=== PATIENT | female | born 1960 | race Caucasian/White ===

== ENCOUNTER → 2018-10-29 15:38 | Outpatient (CLI) | payer OTHER, SELFPAY ==
--- NOTE | 2018-10-29 10:32 | COLBX_PTH ---
PATIENT: SHELIA ROCHA LOC: [facility] U#:[id number] AGE/SX: 64/F ROOM: RE10/29/[address]: Dr. Forrest العراقي MD : 1960 BED: DIS: SPEC #: [id number] RECD: 10/29/18 15:21 STATUS: NELSON RERose #: [id number] JEAN CLAUDE: 10/29/18 10:[address]: Forrest العراقي DEPT: SURGICAL PATHOLOGY RECD BY: Alexei Regan ENTERED: 11/01/18 10:20 SP TYPE: COLON BX OTHR DR: Dr. Jay Webber MD [facility] Tissues: Transverse colon Procedures: Surgery Specimen Level IV HEADER OPERATION: Colonoscopy with polypectomy PRE-OP DIAGNOSIS: Screening, history polyps TISSUE SUBMITTED: Transverse colon polyp, rule out adenoma MICROSCOPIC DIAGNOSIS Transverse colon polyp, biopsy: Consistent with inflammatory pseudopolyp. AM:samy 11/02/18 COMMENT Case has been reviewed in consultation with Dr. Herrera who concurs with the above diagnosis. IDC:SJ MICROSCOPIC DESCRIPTION Slides are reviewed. GROSS DESCRIPTION Received in fixative is one container labeled with the patient's name and designated transverse colon polyp. The specimen consists of a piece of nava-pink polyp measuring 0.3 x 0.3 x 0.2 cm. The specimen is totally submitted in one cassette. / JASON:samy 11/01/18 TC:2 CPT: 31229
== END ==
PROVIDERS: Family Provider Family Medicine; PCP Family Medicine; Referring Provider Internal Medicine Gastroenterology; Visit Provider Internal Medicine Gastroenterology
DX: Z12.11 Encounter for screening for malignant neoplasm of colon (principal); K63.5 Polyp of colon
CPT/HCPCS: 88305

== ENCOUNTER → 2019-05-20 15:06 | Outpatient (CLI) | payer OTHER, SELFPAY ==
[2019-05-20 17:24] LABS: Absolute Lymphocyte Count 1.39 X10^3/uL (0.83-4.51); Absolute Neutrophil Count 3.6 X10^3/uL (2.0-7.7); Basophil# 0.04 X10^3/uL; Basophil% 0.7 % (0-1); Eosinophil# 0.25 X10^3/uL; Eosinophils% 4.3 % (0-5); Hematocrit 44.2 % (37-47); Hemoglobin 14.7 g/dL (12.0-15.0); Lymphocyte # 1.39 X10^3/ul (4.0); Lymphocyte % 24.2 % (19-41); Mean Corp Hgb Conc 33.3 g/dL (32-36); Mean Corpuscular Hgb 29.6 pg (27.0-32.0); Mean Corpuscular Volume 88.9 fL (81-99); Mean Platelet Vol. 9.8 fl (6.2-12.0); Monocyte# 0.51 X10^3/uL; Monocyte% 8.9 % (0-10); NRBC Flagged by Analyzer 0 % (0-5); Neutrophil # 3.55 X10^3/uL (2.7-7.7); Neutrophil % 61.7 % (47-70); Platelet Count 304 K/mm3 (150-450); RBC Distribution Width CV 12.8 % (11.6-14.6); RBC Distribution Width SD 41.7 fl (35.1-43.9); Red Blood Count 4.97 M/mm3 (4.2-5.4); White Blood Count 5.8 K/mm3 (4.4-11.0)
[2019-05-20 17:57] LABS: Hemoglobin A1c 6.2 % (4.2-6.3)
[2019-05-20 18:01] LABS: ALB/GLOB Ratio 1.2 RATIO (0.9-2.4); AST(SGOT) 26 U/L (15-37); Alanine Aminotransfer ALT/SGPT 27 U/L (13-56); Alkaline Phosphatase 93 U/L (45-117); Anion Gap 7 (5-15); BUN 12 mg/dL (7-18); BUN/Creat Ratio 18.3 RATIO (10-20); Calcium,Total 8.9 mg/dL (8.5-10.1); Chloride 105 mmol/L (98-107); Cholesterol 133 mg/dL (200); Creatinine, Serum 0.66 mg/dL (0.55-1.02); EST Glomerular Filtration Rate 98 mL/min (>60); Est Glom Filt Rate - Afr Amer 119 mL/min (>60); Globulin 3.4 g/dL (2.2-4.2); Glucose 85 mg/dL (74-106); High Density Lipoprotein 73 mg/dL; Potassium 3.8 mmol/L (3.5-5.1); Protein, Total 7.4 g/dL (6.4-8.2); Sodium Level 139 mmol/L (136-145); T4 Free Direct 1.47 ng/dL (0.76-1.46); Triglycerides 66 mg/dL; Very Low Density Lipoprotein 13 mg/dL (5-40)
[2019-05-20 18:08] LABS: Microalbumin,Random Urine < 5.0 mg/L (NO RANGE EST.)
[2019-05-23 22:11] LABS: Anti-Thyroglobulin AB < 1.0 IU/mL (0.0-0.9); Thyroid Peroxidase AB 112 IU/mL (0-34)
== END ==
PROVIDERS: Family Provider Family Medicine; PCP Family Medicine; Referring Provider Family Medicine; Visit Provider Family Medicine
DX: E03.9 Hypothyroidism, unspecified (principal); E11.9 Type 2 diabetes mellitus without complications
CPT/HCPCS: 80053; 80061; 82043; 82570; 83036; 84432; 84439; 84443; 85025; 86376; 86800

== ENCOUNTER → 2019-07-01 10:10 | Outpatient (CLI) | payer OTHER, SELFPAY ==
--- NOTE | 2019-07-01 10:13 | ART_ITS ---
Reason For Study: PVD Procedure A bilateral lower extremity continuous wave Doppler with analog waveform analysis,segmental pressures,and ankle brachial indexes with exercise. Left Segmental Pressures Left brachial= 126mmHg. Left posterior tibial artery = 129mmHg. Left dorsalis pedis artery = 123mmHg. The left dorsalis pedis waveforms are triphasic. The left posterior tibial artery waveforms are triphasic. Right Segmental Pressures Right brachial= 127mmHg. Right posterior tibial artery = 131mmHg. Right dorsalis pedis artery = 130mmHg. The right dorsalis pedis waveforms are triphasic. The right posterior tibial artery waveforms are triphasic. Indices The right ankle brachial index by the dorsalis pedis is 1.02. The right ankle brachial index by the posterior tibial artery is 1.03. The right post exercise ankle brachial index is 1.13. The left ankle brachial index by the dorsalis pedis is 0.97. The left ankle brachial index by the posterior tibial artery is 1.02. The left post exercise ankle brachial index is 1.04. Interpretation Summary Triphasic Doppler waveforms are noted at ankle level bilaterally. Pulse-volume recordings appear satisfactory at ankle and digital level bilaterally. Resting ankle-brachial indices are normal bilaterally. The patient was exercised on a treadmill for 5 minutes at 1.7 MPH and a 5% grade, following which ankle pressures augmented bilaterally, which is a normal physiological response. There is no evidence of significant arterial occlusive disease in the lower extremities bilaterally. Ordering Physician: Vamsi Mon Referring Physician: Vamsi Mon Performed By: Diya Gutierres RVT
== END ==
PROVIDERS: Family Provider Family Medicine; PCP Family Medicine; Referring Provider Family Medicine; Visit Provider Family Medicine
DX: I73.9 Peripheral vascular disease, unspecified (principal)
CPT/HCPCS: 93922

== ENCOUNTER → 2019-07-07 11:43 | Outpatient (CLI) | payer OTHER, SELFPAY ==
--- NOTE | 2019-07-07 11:48 | BI_ITS ---
MAMMOGRAPHY - BILATERAL SCREENING 3-D TOMOSYNTHESIS REASON FOR EXAM: Female, 58 years old. Routine annual screening mammogram. PERTINENT HISTORY: Family history of breast cancer in sister at age 66. TECHNIQUE: 2-D mammograms and 3-D Tomosynthesis of the breast (s) were performed. CAD was performed. COMPARISON: July 05, 2018, June 24, 2017 FINDINGS: The breast composition is almost entirely fat. Scattered benign calcifications are seen. No dense spiculated masses or suspicious microcalcifications are identified. No architectural distortion is identified. There is no skin thickening or retraction. There has been no significant change since the prior study. BI/SCREEN MAMM (CAD) W/BIRDIE BILAT IMPRESSION: No mammographic signs of malignancy. Routine yearly mammograms recommended. ASSESSMENT CATEGORY: BIRADS Category 2: Benign. A letter regarding these results will be sent to the patient by the facility within 30 days. FOLLOW UP RECOMMENDATION: Yearly follow up mammogram recommended. (A) Approximately 10% of breast cancers are not detected by mammography. A normal mammogram should not delay biopsy of a clinically suspicious abnormality. Electronically Signed: Emeterio Lentz MD at 15:44 EST , Service support ,
[2019-07-11 15:40] LABS: HPV HC, High Risk Negative (Negative)
== END ==
PROVIDERS: Family Provider Family Medicine; PCP Family Medicine; Referring Provider Family Medicine; Visit Provider Family Medicine
DX: Z12.31 Encounter for screening mammogram for malignant neoplasm of breast (principal); Z01.419 Encounter for gynecological examination (general) (routine) without abnormal findings; I73.9 Peripheral vascular disease, unspecified
CPT/HCPCS: 77063; 77067; 87624; 88175; G0145

== ENCOUNTER → 2019-09-27 09:45 | Outpatient (CLI) | payer OTHER, SELFPAY ==
[2019-09-27 12:28] LABS: Absolute Lymphocyte Count 1.25 X10^3/uL (0.83-4.51); Basophil# 0.07 X10^3/uL; Basophil% 1.4 % (0-1); Eosinophil# 0.31 X10^3/uL; Eosinophils% 6.1 % (0-5); Hematocrit 42.7 % (37-47); Hemoglobin 13.5 g/dL (12.0-15.0); Lymphocyte # 1.25 X10^3/ul (4.0); Lymphocyte % 24.7 % (19-41); Mean Corp Hgb Conc 31.6 g/dL (32-36); Mean Corpuscular Hgb 28.2 pg (27.0-32.0); Mean Corpuscular Volume 89.3 fL (81-99); Mean Platelet Vol. 9.8 fl (6.2-12.0); Monocyte# 0.45 X10^3/uL; Monocyte% 8.9 % (0-10); NRBC Flagged by Analyzer 0 % (0-5); Neutrophil # 2.98 X10^3/uL (2.7-7.7); Neutrophil % 58.7 % (47-70); Platelet Count 280 K/mm3 (150-450); RBC Distribution Width CV 12.8 % (11.6-14.6); RBC Distribution Width SD 42.1 fl (35.1-43.9); Red Blood Count 4.78 M/mm3 (4.2-5.4); White Blood Count 5.1 K/mm3 (4.4-11.0)
[2019-09-27 12:47] LABS: Vitamin B12 615 pg/mL (211-911); Vitamin D,25 Hydroxy 42.5 ng/mL
[2019-09-27 12:48] LABS: Hemoglobin A1c 7.4 % (4.2-6.3)
[2019-09-27 12:56] LABS: Microalbumin,Random Urine 5.5 mg/L (NO RANGE EST.); Microalbumin:Creatinine Ratio 13.3 mg/g CRE (<30 mg/g CRE)
[2019-09-27 13:00] LABS: AST(SGOT) 19 U/L (15-37); Alanine Aminotransfer ALT/SGPT 26 U/L (13-56); Albumin, Serum 3.6 g/dL (3.2-5.0); Alkaline Phosphatase 117 U/L (45-117); BUN 19 mg/dL (7-18); BUN/Creat Ratio 29.1 RATIO (10-20); Calcium,Total 8.6 mg/dL (8.5-10.1); Cholesterol 140 mg/dL (200); Creatinine, Serum 0.65 mg/dL (0.55-1.02); EST Glomerular Filtration Rate 98 mL/min (>60); Est Glom Filt Rate - Afr Amer 119 mL/min (>60); Globulin 3.6 g/dL (2.2-4.2); Glucose 169 mg/dL (74-106); Protein, Total 7.2 g/dL (6.4-8.2); Triglycerides 56 mg/dL
[2019-09-27 13:01] LABS: Anion Gap 6 (5-15); Chloride 105 mmol/L (98-107); High Density Lipoprotein 69 mg/dL; Potassium 4.2 mmol/L (3.5-5.1); Sodium Level 138 mmol/L (136-145); Thyroid Stim Hormone (TSH) 0.94 uIU/mL (0.358-3.74); Very Low Density Lipoprotein 11 mg/dL (5-40)
== END ==
PROVIDERS: PCP Family Medicine; Referring Provider Family Medicine; Visit Provider Family Medicine
DX: R53.83 Other fatigue (principal); E11.9 Type 2 diabetes mellitus without complications; E03.8 Other specified hypothyroidism; Z86.73 Personal history of transient ischemic attack (TIA), and cerebral infarction without residual deficits
CPT/HCPCS: 36415; 80053; 80061; 82043; 82306; 82570; 82607; 83036; 84443; 85025

== ENCOUNTER → 2019-12-23 14:11 | Outpatient (CLI) | payer OTHER, SELFPAY ==
[2019-12-23 15:42] LABS: Hemoglobin A1c 6.9 % (3.8-5.6)
[2019-12-23 16:08] LABS: ALB/GLOB Ratio 1.1 RATIO (0.9-2.4); AST(SGOT) 25 U/L (15-37); Alanine Aminotransfer ALT/SGPT 26 U/L (13-56); Albumin, Serum 3.7 g/dL (3.2-5.0); Alkaline Phosphatase 103 U/L (45-117); Anion Gap 8 (5-15); BUN 14 mg/dL (7-18); BUN/Creat Ratio 20.4 RATIO (10-20); Calcium,Total 8.7 mg/dL (8.5-10.1); Chloride 104 mmol/L (98-107); Cholesterol 147 mg/dL (200); Creatinine, Serum 0.68 mg/dL (0.55-1.02); EST Glomerular Filtration Rate 93 mL/min (>60); Est Glom Filt Rate - Afr Amer 113 mL/min (>60); Globulin 3.4 g/dL (2.2-4.2); Glucose 86 mg/dL (74-106); High Density Lipoprotein 72 mg/dL; Potassium 3.6 mmol/L (3.5-5.1); Protein, Total 7.1 g/dL (6.4-8.2); Sodium Level 140 mmol/L (136-145); Thyroid Stim Hormone (TSH) 1.78 uIU/mL (0.358-3.74); Triglycerides 68 mg/dL; Very Low Density Lipoprotein 14 mg/dL (5-40)
== END ==
PROVIDERS: PCP Family Medicine; Visit Provider Family Medicine
DX: E11.9 Type 2 diabetes mellitus without complications (principal); E03.8 Other specified hypothyroidism; Z86.73 Personal history of transient ischemic attack (TIA), and cerebral infarction without residual deficits
CPT/HCPCS: 36415; 80053; 80061; 83036; 84443

== ENCOUNTER → 2020-01-10 10:54 | Outpatient (CLI) | payer OTHER, SELFPAY ==
--- NOTE | 2020-01-10 10:59 | RAD_ITS ---
STUDY: X-RAY - PELVIS AND BILATERAL HIPS REASON FOR EXAM: Female, 59 years old. Left hip pain x 1 week TECHNIQUE: AP view of the pelvis.? 2 views of the right hip, and 2 views of the left hip were obtained. COMPARISON: None. FINDINGS: There is a non-specific bowel gas pattern. There are multiple calcified phleboliths. There is narrowing with cortical sclerosis and osteophyte formation of the sacroiliac joint consistent with degenerative osteoarthritic changes. Normal bilateral superior and inferior pubic rami. There is narrowing with sclerosis of the pubic symphysis. Normal bilateral ischial tuberosities. Normal visualized right femoral head. Normal right acetabulum. There is mild articular joint space narrowing of the right hip. Normal visualized left femoral head. Normal left acetabulum. There is mild articular joint space narrowing of the left hip. RAD/Hips B/L min 2 views w/ Pelvis IMPRESSION: Mild degree of degenerative changes of both hip joints and symphysis pubis. Electronically Signed: Jose Luis Harris, at 12:03 EDT , Service support ,
== END ==
PROVIDERS: PCP Family Medicine; Referring Provider Family Medicine; Visit Provider Family Medicine
DX: M25.559 Pain in unspecified hip (principal)
CPT/HCPCS: 73521

== ENCOUNTER → 2020-04-23 12:03 | Outpatient (CLI) | payer OTHER, SELFPAY ==
[2020-04-23 15:35] LABS: Hemoglobin A1c 6.8 % (3.8-5.6)
[2020-04-23 15:39] LABS: Microalbumin,Random Urine 6.6 mg/L (NO RANGE EST.); Microalbumin:Creatinine Ratio 39.2 mg/g CRE (<30 mg/g CRE)
[2020-04-23 16:11] LABS: AST(SGOT) 21 U/L (15-37); Alanine Aminotransfer ALT/SGPT 25 U/L (13-56); Albumin, Serum 3.6 g/dL (3.2-5.0); Alkaline Phosphatase 105 U/L (45-117); Anion Gap 6 (5-15); BUN 13 mg/dL (7-18); BUN/Creat Ratio 20.3 RATIO (10-20); Calcium,Total 8.8 mg/dL (8.5-10.1); Chloride 104 mmol/L (98-107); Cholesterol 123 mg/dL (200); Creatinine, Serum 0.64 mg/dL (0.55-1.02); EST Glomerular Filtration Rate 101 mL/min (>60); Est Glom Filt Rate - Afr Amer 122 mL/min (>60); Globulin 3.6 g/dL (2.2-4.2); Glucose 107 mg/dL (74-106); High Density Lipoprotein 70 mg/dL; Potassium 3.7 mmol/L (3.5-5.1); Protein, Total 7.2 g/dL (6.4-8.2); Sodium Level 139 mmol/L (136-145); Triglycerides 70 mg/dL; Very Low Density Lipoprotein 14 mg/dL (5-40)
== END ==
PROVIDERS: PCP Family Medicine; Visit Provider Family Medicine
DX: E03.8 Other specified hypothyroidism (principal); I73.9 Peripheral vascular disease, unspecified; E11.9 Type 2 diabetes mellitus without complications
CPT/HCPCS: 36415; 80053; 80061; 82043; 82570; 83036; 84443

== ENCOUNTER → 2020-07-24 08:11 | Outpatient (CLI) | payer OTHER, SELFPAY ==
--- NOTE | 2020-07-24 08:14 | BI_ITS ---
MAMMOGRAPHY - BILATERAL SCREENING REASON FOR EXAM: Female, 59 years old. Routine annual screening examination. PERTINENT HISTORY: Sister with breast cancer. TECHNIQUE: Digital bilateral breast birdie (3D mammographic acquisition) in the CC and MLO projections. 2-D mediolateral oblique (MLO) and craniocaudad (CC) views of both breasts were obtained. CAD: Full Field Digital Mammography with Computer Added Detection was performed. COMPARISON: Comparison is made with prior study dated 07/07/2019. FINDINGS: Breast Composition: There are scattered areas of fibroglandular density. There are no dominant masses or suspicious calcifications. No other significant abnormalities are identified. There has been no significant change since the prior study. BI/SCREEN MAMM (CAD) W/BIRDIE BILAT IMPRESSION: Stable bilateral screening mammogram. Yearly follow-up mammogram recommended. (A) ASSESSMENT CATEGORY: BIRADS Category 1: Negative. A letter regarding these results will be sent to the patient by the facility within 30 days. Approximately 10% of breast cancers are not detected by mammography. A normal mammogram should not delay biopsy of a clinically suspicious abnormality. [id number] Electronically Signed: Jose Luis Harris, at 9:14 EST , Service support ,
== END ==
PROVIDERS: PCP Family Medicine; Referring Provider Family Medicine; Visit Provider Family Medicine
DX: Z12.31 Encounter for screening mammogram for malignant neoplasm of breast (principal); Z80.3 Family history of malignant neoplasm of breast
CPT/HCPCS: 77063; 77067

== ENCOUNTER → 2020-08-22 11:39 | Outpatient (CLI) | payer OTHER, SELFPAY ==
[2020-08-22 17:50] LABS: Absolute Lymphocyte Count 1.13 X10^3/uL (0.83-4.51); Absolute Neutrophil Count 3.5 X10^3/uL (2.0-7.7); Basophil# 0.06 X10^3/uL; Basophil% 1.1 % (0-1); Eosinophil# 0.34 X10^3/uL; Eosinophils% 6.2 % (0-5); Hematocrit 42.4 % (37-47); Hemoglobin 13.7 g/dL (12.0-15.0); Lymphocyte # 1.13 X10^3/ul (4.0); Lymphocyte % 20.7 % (19-41); Mean Corp Hgb Conc 32.3 g/dL (32-36); Mean Corpuscular Hgb 29.2 pg (27.0-32.0); Mean Corpuscular Volume 90.4 fL (81-99); Mean Platelet Vol. 9.6 fl (6.2-12.0); Monocyte# 0.43 X10^3/uL; Monocyte% 7.9 % (0-10); NRBC Flagged by Analyzer 0 % (0-5); Neutrophil # 3.48 X10^3/uL (2.7-7.7); Neutrophil % 63.9 % (47-70); Platelet Count 373 K/mm3 (150-450); RBC Distribution Width CV 13.2 % (11.6-14.6); RBC Distribution Width SD 42.8 fl (35.1-43.9); Red Blood Count 4.69 M/mm3 (4.2-5.4); White Blood Count 5.5 K/mm3 (4.4-11.0)
[2020-08-22 18:10] LABS: Hemoglobin A1c 7.2 % (3.8-5.6)
[2020-08-22 18:23] LABS: ALB/GLOB Ratio 1.3 RATIO (0.9-2.4); AST(SGOT) 20 U/L (15-37); Alanine Aminotransfer ALT/SGPT 23 U/L (13-56); Albumin, Serum 3.7 g/dL (3.2-5.0); Alkaline Phosphatase 109 U/L (45-117); Anion Gap 7 (5-15); BUN 15 mg/dL (7-18); BUN/Creat Ratio 25.3 RATIO (10-20); Calcium,Total 8.8 mg/dL (8.5-10.1); Chloride 104 mmol/L (98-107); Cholesterol 140 mg/dL (200); Creatinine, Serum 0.59 mg/dL (0.55-1.02); EST Glomerular Filtration Rate 110 mL/min (>60); Est Glom Filt Rate - Afr Amer 133 mL/min (>60); Globulin 2.8 g/dL (2.2-4.2); Glucose 117 mg/dL (74-106); High Density Lipoprotein 68 mg/dL; Potassium 3.9 mmol/L (3.5-5.1); Protein, Total 6.5 g/dL (6.4-8.2); Sodium Level 139 mmol/L (136-145); T4 Free Direct 1.46 ng/dL (0.76-1.46); Thyroid Stim Hormone (TSH) 2.06 uIU/mL (0.358-3.74); Triglycerides 63 mg/dL; Very Low Density Lipoprotein 13 mg/dL (5-40)
== END ==
PROVIDERS: PCP Family Medicine; Referring Provider Family Medicine; Visit Provider Family Medicine
DX: I73.9 Peripheral vascular disease, unspecified (principal)
CPT/HCPCS: 36415; 80053; 80061; 83036; 84439; 84443; 85025

== ENCOUNTER → 2020-08-30 09:53 | Outpatient (CLI) | payer OTHER, SELFPAY ==
--- NOTE | 2020-08-30 09:56 | RAD_ITS ---
STUDY: X-RAY - RIGHT SHOULDER REASON FOR EXAM: Bilateral shoulder pain, worse on the right. TECHNIQUE: 4 view(s) of the shoulder. COMPARISON: None. FINDINGS: Normal glenohumeral articulation. There is mild acromioclavicular arthrosis. Normal acromion. Normal humeral head and visualized proximal humerus. The soft tissue structures are unremarkable. Normal visualized pulmonary apex. RAD/Shoulder min 2 Views IMPRESSION: Mild acromioclavicular arthrosis. Electronically Signed: Remington Marroquin MD at 10:28 EST Tel , Service support ,
--- NOTE | 2020-08-30 09:56 | RAD_ITS ---
STUDY: X-RAY - LEFT SHOULDER REASON FOR EXAM: Bilateral shoulder pain, worse on the right. TECHNIQUE: 4 view(s) of the shoulder. COMPARISON: None. FINDINGS: Normal glenohumeral articulation. There is mild acromioclavicular arthrosis. Normal acromion. Normal humeral head and visualized proximal humerus. The soft tissue structures are unremarkable. Normal visualized pulmonary apex. RAD/Shoulder min 2 Views IMPRESSION: Mild acromioclavicular arthrosis. Electronically Signed: Remington Marroquin MD at 10:33 EST Tel , Service support ,
== END ==
PROVIDERS: PCP Family Medicine; Referring Provider Family Medicine; Visit Provider Family Medicine
DX: M25.519 Pain in unspecified shoulder (principal)
CPT/HCPCS: 73030

== ENCOUNTER → 2020-11-22 10:07 | Outpatient (CLI) | payer OTHER, SELFPAY ==
[2020-11-22 12:30] LABS: Microalbumin,Random Urine < 5.0 mg/L (NO RANGE EST.)
[2020-11-22 12:31] LABS: AST(SGOT) 22 U/L (15-37); Alanine Aminotransfer ALT/SGPT 30 U/L (13-56); Albumin, Serum 3.6 g/dL (3.2-5.0); Alkaline Phosphatase 108 U/L (45-117); Anion Gap 4 (5-15); BUN 10 mg/dL (7-18); BUN/Creat Ratio 15.9 RATIO (10-20); Calcium,Total 8.9 mg/dL (8.5-10.1); Chloride 105 mmol/L (98-107); Cholesterol 155 mg/dL (200); Creatinine, Serum 0.63 mg/dL (0.55-1.02); EST Glomerular Filtration Rate 103 mL/min (>60); Est Glom Filt Rate - Afr Amer 124 mL/min (>60); Globulin 3.6 g/dL (2.2-4.2); Glucose 159 mg/dL (74-106); High Density Lipoprotein 76 mg/dL; Protein, Total 7.2 g/dL (6.4-8.2); Sodium Level 137 mmol/L (136-145); Thyroid Stim Hormone (TSH) 1.57 uIU/mL (0.358-3.74); Triglycerides 76 mg/dL; Very Low Density Lipoprotein 15 mg/dL (5-40)
[2020-11-22 12:39] LABS: Hemoglobin A1c 8.2 % (3.8-5.6)
== END ==
PROVIDERS: PCP Family Medicine; Referring Provider Family Medicine; Visit Provider Family Medicine
DX: R80.9 Proteinuria, unspecified (principal); E11.9 Type 2 diabetes mellitus without complications; E03.8 Other specified hypothyroidism
CPT/HCPCS: 36415; 80053; 80061; 82043; 82570; 83036; 84443

== ENCOUNTER → 2021-07-03 16:03 | Outpatient (CLI) | payer OTHER, SELFPAY ==
--- NOTE | 2021-07-03 16:05 | RAD_ITS ---
STUDY: X-RAY - LEFT FOOT CLINICAL: Female, 60 years old. ONGOING HEEL PAIN. PT HAD FOOT SURGERY ABOUT 4-5 YEARS AGO. TECHNIQUE: 3 view(s) of the foot. COMPARISON: None. FINDINGS: A cortical plate-screw construct of the body of the calcaneus is present. A small screw is anchored at the periphery of the navicular bone. No visualized hardware complications. A moderate size plantar calcaneal spur is present. Linear sclerotic line through the mid aspect of the calcaneal body suggests healing from prior trauma. The bony structures are moderately demineralized. The IP joints throughout the foot are mildly to moderately narrowed. The MTP joints are preserved with exception of mild narrowing of the first articulation. Normal talus, calcaneus, and tarsal bones. Normal visualized subtalar, talonavicular, calcaneocuboid, tarsal and tarsometatarsal articulations. Normal metatarsi. The soft tissue structures are unremarkable. RAD/Foot min 3 Views IMPRESSION: Degenerative changes Electronically Signed: Shimon Jean MD at 23:55 EST , Service support ,
== END ==
PROVIDERS: PCP Family Medicine; Referring Provider Family Medicine; Visit Provider Family Medicine
DX: M79.673 Pain in unspecified foot (principal)
CPT/HCPCS: 73630

== ENCOUNTER 2021-09-18 10:13 | Outpatient (CLI) | payer OTHER, SELFPAY ==
[2021-09-18 12:00] LABS: Hematocrit 42.7 % (37-47); Hemoglobin 13.8 g/dL (12.0-15.0); Mean Corp Hgb Conc 32.3 g/dL (32-36); Mean Corpuscular Hgb 28.9 pg (27.0-32.0); Mean Corpuscular Volume 89.5 fL (81-99); Mean Platelet Vol. 9.5 fl (6.2-12.0); Platelet Count 345 K/mm3 (150-450); RBC Distribution Width SD 42.7 fl (35.1-43.9); Red Blood Count 4.77 M/mm3 (4.2-5.4); White Blood Count 5.7 K/mm3 (4.4-11.0)
== END 2021-09-18 23:59 | disposition home or self-care (01) ==
LOC: MTLAB 10:14
PROVIDERS: PCP Family Medicine; Referring Provider Nurse Practitioner Family; Visit Provider Nurse Practitioner Family
DX: E11.9 Type 2 diabetes mellitus without complications (principal)
CPT/HCPCS: 36415; 85027

== ENCOUNTER 2021-10-15 07:22 | Outpatient (CLI) | payer OTHER, SELFPAY ==
--- NOTE | 2021-10-15 07:25 | CT_ITS ---
STUDY: CT LEFT LOWER EXTREMITY WITHOUT CONTRAST REASON FOR EXAM: Left knee osteoarthritis, surgical planning. TECHNIQUE: Transaxial CT imaging of the lower extremity was performed. Coronal and sagittal images were reformatted. Individualized dose optimization techniques were used for this CT. COMPARISON: None. FINDINGS: Knee: There is mild joint space narrowing of the medial femorotibial compartment (coronal reconstruction 30). There is preservation of joint space of the lateral femorotibial compartment with subchondral cystic change of the lateral tibial plateau (coronal reconstruction 37). There is joint space narrowing of the lateral aspect of the patellofemoral articulation with subchondral cystic change (axial image 312). There is a small left knee joint effusion. There is a small popliteal cyst (axial reconstruction through 49). Hip: There is preservation of the joint space of the left hip. Ankle: There is preservation of joint space of the tibiotalar, posterior subtalar, talonavicular and calcaneocuboid articulations. There is a healed calcaneal osteotomy with orthopedic hardware. CT/Extremity Lower without Contra IMPRESSION: Left knee osteoarthritis. Electronically Signed: Remington Marroquin MD at 14:53 EDT ,
== END 2021-10-15 23:59 | disposition home or self-care (01) ==
LOC: CT 07:23
PROVIDERS: PCP Family Medicine; Referring Provider Physician Assistant; Visit Provider Physician Assistant
DX: M17.12 Unilateral primary osteoarthritis, left knee (principal)
CPT/HCPCS: 73700

== ENCOUNTER 2021-10-28 09:55 | Day surgery (SDC) | payer OTHER, SELFPAY ==
--- NOTE | 2021-10-21 15:50 | EKG12_ITS ---
Test Reason : PRE OP Blood Pressure : / mmHG Vent. Rate : 069 BPM Atrial Rate : 069 BPM P-R Int : 164 ms QRS Dur : 080 ms QT Int : 402 ms P-R-T Axes : 044 013 053 degrees QTc Int : 430 ms Sinus rhythm with Premature atrial complexes Low voltage QRS Borderline ECG Confirmed by KARINA POP, MARICRUZ ([id number]), manager editorial SHANICE VANEGAS ([id number]) on 10/23/2021 10:51:18 AM Referred By: Duane Danielson Confirmed By:MARICRUZ COLLINS MD
[2021-10-21 16:58] LABS: Hemoglobin A1c 6.4 % (3.8-5.6)
[2021-10-21 17:10] LABS: Hematocrit 41.9 % (37-47); Hemoglobin 13.7 g/dL (12.0-15.0); Mean Corp Hgb Conc 32.7 g/dL (32-36); Mean Corpuscular Hgb 28.7 pg (27.0-32.0); Mean Corpuscular Volume 87.7 fL (81-99); Mean Platelet Vol. 9.4 fl (6.2-12.0); Platelet Count 304 K/mm3 (150-450); RBC Distribution Width SD 41.7 fl (35.1-43.9); Red Blood Count 4.78 M/mm3 (4.2-5.4); White Blood Count 4.2 K/mm3 (4.4-11.0)
[2021-10-21 17:25] LABS: AST(SGOT) 29 U/L (15-37); Alanine Aminotransfer ALT/SGPT 25 U/L (13-56); Albumin, Serum 3.7 g/dL (3.2-5.0); Alkaline Phosphatase 99 U/L (45-117); Bilirubin, Direct 0.15 mg/dL (0.00-0.30); Globulin 3.8 g/dL (2.2-4.2); Magnesium 1.8 mg/dL (1.6-2.6); Protein, Total 7.5 g/dL (6.4-8.2); Thyroid Stim Hormone (TSH) 3.46 uIU/mL (0.358-3.74)
[2021-10-21 17:28] LABS: Anion Gap 5 (5-15); BUN 24 mg/dL (7-18); BUN/Creat Ratio 29.6 RATIO (10-20); Calcium,Total 9.1 mg/dL (8.5-10.1); Chloride 105 mmol/L (98-107); Creatinine, Serum 0.81 mg/dL (0.55-1.02); EST Glomerular Filtration Rate 76 mL/min (>60); Est Glom Filt Rate - Afr Amer 92 mL/min (>60); Glucose 73 mg/dL (74-106); Potassium 4.2 mmol/L (3.5-5.1); Sodium Level 139 mmol/L (136-145)
[2021-10-21 17:42] LABS: Prothrombin Time (Protime)PT. 12.5 SECONDS (11.7-14.9)
[2021-10-21 19:45] LABS: Partial Thromboplast Time 34.8 Seconds (24.1-36.2)
[2021-10-28] VITALS (13 sets, daily range): BP systolic 101–123; BP diastolic 61–79; PULSE 61–81; RESP 16; TEMP 36.5–37; O2SAT 94–100; BMI 32.5
[2021-10-28] MEDS: Gabapentin 600 MG Tablet PO (11:06)
[2021-10-28] MEDS: Acetaminophen 500 MG Tablet 1000 MG PO (11:06)
[2021-10-28] MEDS: Lactated Ringers 1,000 ML 15 ML IV ×2 (11:08→15:29)
[2021-10-28 12:10] LABS: Bedside Glucose 99 mg/dL (74-106)
--- NOTE | 2021-10-28 12:30 | KNEE_PTH ---
PATIENT: SHELIA ROCHA LOC: [facility] [place] U#:[id number] AGE/SX: 61/F ROOM: RE10/28/[address]: Dr. Duane Danielson DO : 1960 BED: DIS: 10/28/2021 SPEC #: [id number] RECD: 10/28/21 15:05 STATUS: NELSON RERose #: [id number] JEAN CLAUDE: 10/28/21 12:[address]: Duane Danielson DEPT: SURGICAL PATHOLOGY RECD BY: Jessica Lira ENTERED: 10/29/21 07:30 SP TYPE: TOTAL KNEE OTHR DR: Dr. Vamsi Mon MD Tissues: Knee, NOS Procedures: Decalcification bone/plaque Surgery Specimen Level IV HEADER OPERATION: ERAS, total knee replacement robotic arm assist PRE-OP DIAGNOSIS: Primary osteoarthritis TISSUE SUBMITTED: Left knee bone MICROSCOPIC DIAGNOSIS Bone and tissue of left knee, total knee resection: Severe degenerative joint disease. Mild synovial hyperplasia with associated mild chronic inflammation. AM:samy 11/01/2021 MICROSCOPIC DESCRIPTION Slides are reviewed. GROSS DESCRIPTION Received is one container designated bone and soft tissue left knee. The specimen consists of multiple fragments of nava-yellow bone measuring in aggregate 14 x 12 x 1.5 cm. Also in the specimen container are multiple fragments of yellow-white soft tissue measuring in aggregate 9 x 7 x 2 cm. A number of bony fragments contain articular surfaces consistent with tibial plateau and femoral condyle and displaying prominent osteophyte formation, eburnation, and bone erosion. Medical And Scientific Illustrator sections are submitted in two cassettes as follows: 1 - soft tissue, 2 - bone after decalcification. / AM:samy 10/29/2021 TC:[address] [facility]: [id number], [id number]
[2021-10-28] MEDS: Cefazolin 2 GM in 0.9% Normal Saline 100 ML IV (13:17)
[2021-10-28] MEDS: TXA 1000mg in NS100 100ml (IVPB at Incision) 660 MG IV (13:27)
[2021-10-28] MEDS: TXA 1000mg in NS100 100ml (IVPB at Closure) 660 MG IV (14:37)
--- NOTE | 2021-10-28 14:39 | PCM.OPRPT ---
Report of Operation Date of Procedure: 10/28/21 Pre-Operative Diagnosis: OA left knee Post-Operative Diagnosis: same Surgery/Procedure Performed:: Left TKR Description of Surgical Findings:: Report of Operation Date of Procedure: 10/28/2021 Preoperative Diagnosis: [left ] knee primary osteoarthritis Postoperative Diagnosis: [left ] knee primary osteoarthritis Operation: Robotic Assisted Knee Total Arthroplasty, [left ] knee Surgeon: Dr Duane Danielson DO Tonnage Compilation Clerk: Emeterio Castellanos PA-C Anesthesia: Fox Hughes M.D. Anesthesiologist: Findings: Stable knee with good patella tracking Specimen(s): Bony cuts Complications: No intraoperative complications Estimated Blood Loss: 30 cc IV Fluids: 1000 cc crystalloid Implants Used: 1. Julián Triathlon press-fit CR size 4 femur 2. Julián Triathlon size 4 tibia 3. 35 mm patella 4. 9 mm CS polyethylene Brief History Operative Indications: [ (61 y/o female) ] with history of [ left ] knee osteoarthrosis with radiographic findings with loss of joint space, osteophyte formation and subchondral sclerosis. Failed conservative measures as mentioned in the H&P. Discussion of total knee arthroplasty as well as risk and benefits were discussed with the patient including but not limited to blood loss, DVTs, PEs, neurovascular damage, general risk of anesthesia including loss of life, and stiffness or instability were also discussed with the patient. Patient demonstrated understanding and was able to sign informed consent. Procedure: On the date of procedure, patient's [ left ] lower extremity was marked in the preoperative area. The patient was then taken back to the operating room where that patient was placed on the table in the supine position. All bony prominences were identified and well-padded. Anesthesia assumed control of the C-spine and airway throughout the remainder of the procedure. A tourniquet was placed on the [left ] upper thigh and the leg was prepped in a sterile fashion. The surgeon then scrubbed at this time. Upon reentering the room, the [ left ] lower extremity was draped in a standard orthopedic fashion. A timeout was then called and everyone agreed upon the side, the site, the procedure to be performed, patient's identity and antibiotics given. Esmarch bandage was used to exsanguinate the extremity and the tourniquet was placed up to 250 mmHg with the knee in flexion. A midline skin incision was made and a sharp dissection was taken down through skin, subcutaneous tissue and fat. The standard medial parapatellar incision was made and the patella was subluxed laterally. An appropriate deep MCL release was done and the fat pad was resected. Our attention was then directed to the patella. The patella was everted and a flat resection was made. The knee was then flexed up and 2 femoral pins were placed inside the incision and 2 tibial pins were placed outside the incision in the medial tibia bicortically. Once this was completed, the 2 checkpoints in the femur and tibia were placed. Knee was then flexed up and the bony landmarks were registered. Once the was completed, the knee taken through range of motion and manually stressed allowing us to plan for an appropriate tibial cut. The robotic arm was brought into the field sterilely and checkpoint and saw were registered. Based on the patient's deformity, the tibial cut was made in [neutral ]. At this time, the tensioner was then placed in the joint and ligament tension was checked at 90 degrees and full extension. Based on the patient's ligamentous tension, appropriate adjustments were made to the operative plan and ligament releases were done. Once we were happy with our operative plan with balanced flexion and extension gaps, our attention was directed to the femur. The robot was brought into the field sterilely and registered. Posterior condylar cuts, anterior chamfer cuts and anterior cuts were appropriately made for a [size 4 ] femur. When these were completed, the saws were switched out in the distal femoral and posterior chamfer cuts were made. Protecting the soft tissue throughout this time. A [ size 4 ] base plate was selected. The knee was flexed to 90 degrees and soft tissues and posterior osteophytes were removed from the joint. 40 cc of the periarticular injection was injected into the posterior medial corner of the joint. The appropriate trials were then placed on the femur and tibia. A trial polyethylene was trialed to ensure proper balancing and stability of the knee. The appropriate tibial internal rotation was then marked with a bovie. Our attention was then directed to the patella. The lug holes were drilled and the patella trial was placed. Patellar tracking was checked and deemed appropriate. Once we were happy, lug holes were drilled for the femur and trial components were removed. The tibia was subluxed and pinned into place and the keel was punched and drilled appropriately. Final components were verified and opened. The wound was copiously irrigated with normal saline. The components were impacted into place with the tibia, femur and finally the patella. The trial poly component was placed and the knee was placed in full extension. The tracking, alignment and balance were verified and a [9 mm CS ] polyethylene component was placed. Once the final components were placed an Irrisept lavage was performed and the wound was copiously irrigated with normal saline solution and the periarticular injection was given. the wound was closed in a layer-ashton fashion using #1 vicryl interrupted sutures for the arthrotomy, 2-0 interrupted vicryl suture for the subcuticular layer and calin for final skin closure. A sterile compressive dressing was then placed. The patient was then awakened from anesthesia, transferred to the [facility] and transferred to the PACU for recovery. My physician circulation assistant was a vital part of this case. He was important in appropriate retraction during the case, and protection of soft tissues during bony cuts. His intimate knowledge of the case and my steps aided in safe and expedient completion of the procedure as well as appropriate position of the leg during the case. He was also vital in assisting with closure under my direct supervision. Due to the complexity of this case, robotic arm was used to assist in the surgery to improve accuracy and clinical outcomes. Post-op Plan: DVT ppx; ASA 81 mg BID, thigh high compression stockings Follow up: in office in 2 weeks for wound check PT: to start POD #0 at hospital, outpatient PT should be arranged. Preoperative antibiotic: Ancef 2 grams IV Duane Danielson DO Surgeon: Duane Danielson steam cleaning machine operator: Emeterio Castellanos Type of Anesthesia: Spinal Anesthesiologist: Fox Hughes Estimated Blood Loss (mL): 30 cc Fluids Replaced: 1000 cc crystalloid Admit VTE Documentation VTE Present on Admission: No VTE Mechan Device Prophylaxis: SCD's and Thigh High DONALDO Hose VTE Pharm Prophylaxis ordered?: Yes
[2021-10-28] MEDS: Bacitracin 500 UNITS/GM PACKET (15:04)
--- NOTE | 2021-10-28 15:35 | RAD_ITS ---
STUDY: XR Knee 1 or 2 Views 10/28/2021 3:55 PM REASON FOR EXAM: Female, 61 years old. PAIN TECHNIQUE: XR Knee 1 or 2 Views LEFT COMPARISON: None FINDINGS: There is no fracture or dislocation. There is anatomic alignment. Total knee arthroplasty. Soft tissue edema. Skin calin are seen along the anterior midline aspect of the knee. There is an air-fluid level seen in the suprapatellar region. Joint space is preserved. Subcutaneous air is noted. IMPRESSION: Successful total knee arthroplasty. Electronically Signed: Eugene Caldwell MD at 15:55 EDT , RAD/Knee 1 or 2 Views
[2021-10-28 15:56] LABS: Bedside Glucose 166 mg/dL (74-106)
== END 2021-10-28 20:00 | disposition home or self-care (01) ==
LOC: SDC 09:56 → AC 10:59
PROVIDERS: Anesthesiology; PCP Family Medicine; Referring Provider Orthopaedic Surgery; Visit Provider Orthopaedic Surgery
PROC: 0SRD0JZ Replacement of Left Knee Joint with Synthetic Substitute, Open Approach (ICD-10-PCS; CPT 27447; principal; 2021-10-28 12:00)
DX: M17.12 Unilateral primary osteoarthritis, left knee (principal); E11.9 Type 2 diabetes mellitus without complications; Z86.73 Personal history of transient ischemic attack (TIA), and cerebral infarction without residual deficits; Z90.49 Acquired absence of other specified parts of digestive tract; Z98.51 Tubal ligation status
CPT/HCPCS: 27447; S2900; 01402; 36415; 73560; 80048; 80076; 82962; 83036; 83735; 84443; 85027; 85610; 85730; 87077; 87081; 87426; 88305; 88311; 93005; 97161; C1776; C9803; J7120; J2405

== ENCOUNTER → 2022-07-10 | Outpatient (CLI) | payer OTHER, SELFPAY ==
[2022-07-25 16:38] LABS: HPV Reflexed? NOT INDICATED
== END | disposition home or self-care (01) ==
PROVIDERS: PCP Family Medicine; Visit Provider Family Medicine
DX: Z12.4 Encounter for screening for malignant neoplasm of cervix (principal)
CPT/HCPCS: 88175; G0145

== ENCOUNTER → 2022-08-04 | Outpatient (CLI) | payer OTHER, SELFPAY ==
--- NOTE | 2022-08-04 09:47 | BI_ITS ---
MAMMOGRAPHY - BILATERAL SCREENING REASON FOR EXAM: Female, 62 years old. Routine annual screening examination. PERTINENT HISTORY: Sister with breast cancer. TECHNIQUE: Digital bilateral breast birdie (3D mammographic acquisition) in the CC and MLO projections. 2-D mediolateral oblique (MLO) and craniocaudad (CC) views of both breasts were obtained. CAD: Full Field Digital Mammography with Computer Added Detection was performed. COMPARISON: Comparison is made with prior examination dated 08/01/2021 and 07/24/2020. FINDINGS: Breast Composition: There are scattered areas of fibroglandular density. There are no dominant masses or suspicious calcifications. No other significant abnormalities are identified. There has been no significant change since the prior study. BI/SCRN MAMM (CAD)W/BIRDIE BILAT IMPRESSION: Stable bilateral screening mammogram. Yearly follow-up mammogram recommended. (A) ASSESSMENT CATEGORY: BIRADS Category 1: Negative. A letter regarding these results will be sent to the patient by the facility within 30 days. Approximately 10% of breast cancers are not detected by mammography. A normal mammogram should not delay biopsy of a clinically suspicious abnormality. [id number] Electronically Signed: Jose Luis Harris MD at 10:47 EST ,
== END | disposition home or self-care (01) ==
LOC: OPBI 09:46
PROVIDERS: PCP Family Medicine; Visit Provider Family Medicine
DX: Z12.31 Encounter for screening mammogram for malignant neoplasm of breast (principal); Z80.3 Family history of malignant neoplasm of breast
CPT/HCPCS: 77063; 77067

== ENCOUNTER → 2022-10-28 | Outpatient (CLI) | payer OTHER, SELFPAY ==
--- NOTE | 2022-10-28 10:25 | RAD_ITS ---
STUDY: X-RAY - LEFT HAND REASON FOR EXAM: Female, 62 years old. Pain in joint stiffness. TECHNIQUE: 3 view(s) of the hand. COMPARISON: None. FINDINGS: Normal radiocarpal articulation. Normal distal radioulnar joint. Normal visualized carpal bones. There is degenerative joint disease of the scaphotrapezium / trapezoid articulation. The remainder of the carpal articulations are normal. There is degenerative arthrosis of the carpometacarpal (CMC) articulation of the thumb. Normal second through fifth carpometacarpal joints. Normal metacarpi. There is degenerative arthrosis of the first metacarpophalangeal (MCP) joint. Normal interphalangeal joint of the thumb. Normal proximal and distal phalanges of the thumb. Normal metacarpophalangeal joints of the second through fifth fingers. Normal proximal and distal interphalangeal joints of the second through fifth fingers. Normal phalanges of the second through fifth fingers. The soft tissue structures are unremarkable. RAD/Hand Min 3 Views IMPRESSION: Degenerative joint disease of the hand and wrist, as described above. Electronically Signed: Chad Trivedi DO at 17:00 EDT ,
--- NOTE | 2022-10-28 10:26 | RAD_ITS ---
STUDY: X-RAY - RIGHT HAND REASON FOR EXAM: Female, 62 years old. PAIN AND JOINT STIFFNESS TECHNIQUE: 3 view(s) of the hand. COMPARISON: None. FINDINGS: Normal radiocarpal articulation. Normal distal radioulnar joint. Normal visualized carpal bones. Normal carpal articulations Normal carpometacarpal articulation of the thumb. Normal second through fifth carpometacarpal joints. Normal metacarpi. Normal metacarpophalangeal joint of the thumb. Normal interphalangeal joint of the thumb. Normal proximal and distal phalanges of the thumb. Normal metacarpophalangeal joints of the second through fifth fingers. Normal proximal interphalangeal joints of the second through fifth fingers. Mild degenerative changes of the DIP joints Normal phalanges of the second through fifth fingers. The soft tissue structures are unremarkable. RAD/Hand Min 3 Views IMPRESSION: Mild degenerative change. No acute fracture or other significant bony pathology Electronically Signed: Dom Baldwin MD at 18:25 EDT ,
[2022-10-28 12:46] LABS: Absolute Neutrophil Count 3.5 X10^3/uL (2.0-7.7); Basophil# 0.09 X10^3/uL; Basophil% 1.6 % (0-1); Eosinophil# 0.34 X10^3/uL; Eosinophils% 6.2 % (0-5); Hematocrit 41.4 % (37-47); Hemoglobin 13.4 g/dL (12.0-15.0); Lymphocyte % 20.1 % (19-41); Mean Corp Hgb Conc 32.4 g/dL (32-36); Mean Corpuscular Hgb 28.2 pg (27.0-32.0); Mean Platelet Vol. 9.7 fl (6.2-12.0); Monocyte# 0.44 X10^3/uL; NRBC Flagged by Analyzer 0 % (0-5); Neutrophil # 3.49 X10^3/uL (2.7-7.7); Neutrophil % 63.7 % (47-70); Platelet Count 375 K/mm3 (150-450); RBC Distribution Width SD 44.9 fl (35.1-43.9); Red Blood Count 4.76 M/mm3 (4.2-5.4); White Blood Count 5.5 K/mm3 (4.4-11.0)
[2022-10-28 13:07] LABS: T4 Free Direct 1.24 ng/dL (0.76-1.46)
== END | disposition home or self-care (01) ==
LOC: MTLAB 10:24
PROVIDERS: PCP Family Medicine; Referring Provider Family Medicine; Visit Provider Family Medicine
DX: M79.642 Pain in left hand (principal); E11.9 Type 2 diabetes mellitus without complications; M25.60 Stiffness of unspecified joint, not elsewhere classified; E03.8 Other specified hypothyroidism
CPT/HCPCS: 36415; 73130; 84439; 85025

== ENCOUNTER → 2023-01-27 | Outpatient (CLI) | payer OTHER, SELFPAY ==
[2023-01-27 20:18] LABS: Hemoglobin A1c 6.9 % (3.8-5.6)
[2023-01-27 20:20] LABS: AST(SGOT) 19 U/L (15-37); Alanine Aminotransfer ALT/SGPT 24 U/L (13-56); Albumin, Serum 3.5 g/dL (3.2-5.0); Alkaline Phosphatase 110 U/L (45-117); Anion Gap 6 (5-15); BUN 19 mg/dL (7-18); BUN/Creat Ratio 24.7 RATIO (10-20); Calcium,Total 8.7 mg/dL (8.5-10.1); Chloride 105 mmol/L (98-107); Cholesterol 139 mg/dL (200); Creatinine, Serum 0.77 mg/dL (0.55-1.02); EST Glomerular Filtration Rate 81 mL/min (>60); Est Glom Filt Rate - Afr Amer 98 mL/min (>60); Globulin 3.4 g/dL (2.2-4.2); Glucose 86 mg/dL (74-106); High Density Lipoprotein 77 mg/dL; Protein, Total 6.9 g/dL (6.4-8.2); Sodium Level 138 mmol/L (136-145); T4 Free Direct 1.15 ng/dL (0.76-1.46); Thyroid Stim Hormone (TSH) 1.54 uIU/mL (0.358-3.74); Triglycerides 53 mg/dL; Very Low Density Lipoprotein 11 mg/dL (5-40)
[2023-01-27 20:25] LABS: Microalbumin,Random Urine 8.5 mg/L (NO RANGE EST.); Microalbumin:Creatinine Ratio 11.4 mg/g CRE (<30 mg/g CRE)
== END | disposition home or self-care (01) ==
LOC: MTLAB 16:31
PROVIDERS: PCP Family Medicine; Referring Provider Family Medicine; Visit Provider Family Medicine
DX: E11.9 Type 2 diabetes mellitus without complications (principal); E03.8 Other specified hypothyroidism
CPT/HCPCS: 80053; 80061; 82043; 82570; 83036; 84439; 84443

== ENCOUNTER → 2023-08-11 | Outpatient (CLI) | payer OTHER, SELFPAY ==
--- NOTE | 2023-08-11 09:24 | BI_ITS ---
MAMMOGRAPHY - BILATERAL SCREENING REASON FOR EXAM: Female, 63 years old. Routine annual screening examination. PERTINENT HISTORY: Sister with breast cancer. TECHNIQUE: Digital bilateral breast birdie (3D mammographic acquisition) in the CC and MLO projections. 2-D mediolateral oblique (MLO) and craniocaudad (CC) views of both breasts were obtained. CAD: Full Field Digital Mammography with Computer Added Detection was performed. COMPARISON: Comparison is made with prior examination dated February 01, 2023 and August 01, 2021. FINDINGS: Breast Composition: There are scattered areas of fibroglandular density. There are no dominant masses or suspicious calcifications. No other significant abnormalities are identified. There has been no significant change since the prior study. BI/SCRN MAMM (CAD)W/BIRDIE BILAT IMPRESSION: Stable bilateral screening mammogram. Yearly follow-up mammogram recommended. (A) ASSESSMENT CATEGORY: BIRADS Category 1: Negative. A letter regarding these results will be sent to the patient by the facility within 30 days. Approximately 10% of breast cancers are not detected by mammography. A normal mammogram should not delay biopsy of a clinically suspicious abnormality. [id number] Electronically Signed: Jose Luis Harris MD at 13:56 EST ,
--- OUTSIDE RECORDS SUMMARY | 2023-08-11 09:59 | XMS RPT_ITS | CCD ---
Author Name Unknown Address [id number] [place] [address] Organization [facility] Care Team Providers Care Nursery Supervisor Name Role Phone SAIDA POP, MAYNOR Primary Care Physician [phone] Ashley PT, Beatriz Unavailable Unavailable Lawanda WANG, Marilyn Burk Primary Care Provider Lawanda WANG, Marilyn Burk Primary Care Provider MARILYN BAKER III Primary Care Unavail able TEVIN MALONEY Attending Clifton CINTRON MD, MAYNOR Primary Care Unavailable ELSIE PERKINS, CHALO Gómez Attending All CINTRON MD, MAYNOR Primary Care Unavailable ELSIE PERKINS, CHALO Gómez Attending All CINTRON MD, MAYNOR Primary Care Unavailable ELSIE PERKINS, CHALO Gómez Attending All CINTRON MD, MAYNOR Primary Care Unavailable ELSIE PERKINS, CHALO Gómez Attending All thapa Allergies Allergy Classification Reported Allergen(s) Allergy Type Date of Onset Reaction(s) Facility (10 sources) Codeine; Translations: [codeine] Drug Allergy 06-10-2023 Other: See Comments [facility] Work Phone: Medications Current Medications Medication Drug Class(es) Dates Sig (Normalized) Sig (Original) aspirin 81 mg oral tablet (9 sources) Platelet Aggregation Inhibitor, Nonsteroidal Anti-inflammatory Drug Start: 07-01-2017 aspirin 81 mg oral tablet (chewable) Dose : 81 mg = 1 tab(s), Oral, qDay, 0 Refill(s) Start Date: 07/01/17 Status: Ordered Completed/Discontinued Medications Medication Drug Class(es) Dates Sig (Normalized) Sig (Original) atorvastatin 10 mg oral tablet (9 sources) HMG-CoA Reductase Inhibitor Start: 05-18-2023 atorvastatin (LIPITOR) 10 mg tablet TAKE 1 (ONE) TABLET NIGHTLY 0 05/18/2023 Active Problems Problem Classification Problem Date Documented Date Episodic/Chronic Acute cerebrovascular disease (8 sources) Cerebrovascular accident 06-29-2017 Chronic Coronary atherosclerosis and other heart disease (8 sources) Angina pectoris 07-01-2017 Chronic Diabetes mellitus with complications (1 source) Hyperglycemia due to type 2 diabetes mellitus; Translations: [Type 2 diabetes mellitus with hyperglycemia] Chronic Diabetes mellitus without complication (8 sources) Diabetes mellitus 07-01-2017 Chronic Disorders of lipid metabolism (9 sources) Mixed hyperlipidemia; Translations: [Mixed hyperlipidemia] 02-10-2019 Chronic Diverticulosis and diverticulitis (8 sources) Diverticulitis 06-29-2017 Chronic Osteoarthritis (1 source) Osteoarthritis of knee; Translations: [Unilateral primary osteoarthritis, left knee] Chronic Other and ill-defined heart disease (8 sources) Takotsubo cardiomyopathy 02-10-2019 Chronic Other non-traumatic joint disorders (2 sources) Pain in right knee; Translations: [Other acute pain] Onset: 06-10-2023 06-10-2023 Episodic Other non-traumatic joint disorders (1 source) Pain in left knee; Translations: [Acute pain of both knees] Onset: 06-10-2023 Episodic Other skin disorders (1 source) Eruption; Translations: [Rash and other nonspecific skin eruption] 06-10-2023 Episodic Other skin disorders (1 source) Rash and other nonspecific skin eruption; Translations: [Skin rash] Onset: 06-10-2023 Episodic Peripheral and visceral atherosclerosis (8 sources) Peripheral vascular disease 02-10-2019 Chronic Thyroid disorders (16 sources) Hypothyroidism 07-01-2017 Chronic Results Test Name Value Interpretation Reference Range Facil ity Vital Signs Date Time Vital Sign Value Performing Clinician Bryan gray 06-10-2023 09:04-0500 Body temperature 98.91 [degF] Tevin Maloney Jr., NURSE PRACTITIONER.FREIGHT RECEIVER Work Phone: [facility] 06-10-2023 09:04-0500 Diastolic blood pressure 75 mm[Hg] Tevin Maloney Jr., NURSE PRACTITIONER.GIANNI Work Phone: [facility] 06-10-2023 09:04-0500 Heart rate 67 /min Tevin Maloney Jr., APRN.CNP Work Phone: [facility] 06-10-2023 09:04-0500 Respiratory rate 18 /min Tevin Maloney Jr., APRN.GIANNI Work Phone: [facility] 06-10-2023 09:04-0500 SaO2% (BldA) [Mass fraction] 98 % Tevin Maloney Jr., APRN.GIANNI Work Phone: [facility] 06-10-2023 09:04-0500 Systolic blood pressure 117 mm[Hg] Tevin Maloney Jr., APRN.GIANNI Work Phone: [facility] Encounters Encounter Date Encounter Type Care Provider Facility Start: 07-14-2023 End: 07-15-2023 ambulatory MAYNOR CINTRON MD Facility:B Start: 07-14-2023 End: 07-14-2023 Patient encounter procedure CHALO PERKINS [facility] Start: 06-10-2023 End: 06-10-2023 ambulatory [facility] Facility:[id number] Start: 06-10-2023 End: 06-10-2023 Patient encounter procedure Tevin Maloney APRN.CNP Work Phone: [facility] Procedures Date Procedure Procedure Detail Performing Clinician Start: 09-15-2016 Structure of posteri or tibial muscle tendon (body structure) CHALO PERKINS Plan of Treatment Date Care Activity Detail Author Start: 09-21-2028 Urine microalbumin profile DTa P,Tdap,Td Vaccine (4 - Td or Tdap) [facility] Start: 03-13-2023 Covid-19 Vaccine ( season) Covid-19 Vaccine ( season) [facility] Start: 03-13-2023 Influenza vaccination Influenza Vacc ine (#1) [facility] Start: 07-13-2022 Depression Assessment Depression Ass essment [facility] Start: 01-15-2021 RSV Vaccine (1 - 1-d ose 60+ series) RSV Vaccine (1 - 1-dose 60+ series) [facility] Start: 05-09-2014 Shingrix Vaccine (2 of 3) Shingrix V accine (2 of 3) [facility] Start: 09-30-2010 Diabetes Screening Diabetes Screenin g [facility] Start: 2005 Cologuard (FIT-DNA) Cologuard (FIT-D NA) [facility] Start: 2005 Colonoscopy Colonoscopy [facility] Start: 2005 Colorectal Cancer Screening Colorectal Cancer Screening [facility] Start: [address] Colonography [facility] Start: 2005 Fecal Occult Blood Fecal Occult Bloo d [facility] Start: 2005 Lipid 1996 panel - S sandi or Plasma Lipid Screening [facility] Start: 2005 Sigmoidoscopy Sigmoidoscopy [facility] Start: 2000 Mammography Mammogram Screening [facility] Start: 1990 HPV Testing HPV Testing [facility] Start: 1981 Pap Testing Pap Testing [facility] Start: 1978 Hepatitis C Screening Hepatitis C Sc reening [facility] Start: 1978 HIV Screening HIV Screening [facility] Immunizations Immunization Date Immunization Notes Care Provider Suzy hodges 09-28-2020 COVID-19, mRNA, LNP- S, PF, 100 mcg/ 0.5 mL dose; Translations: [Moderna COVID-19 Vaccine] CHALO ZIMMERMAN NURSE PRACTITIONER-FREIGHT RECEIVER [facility] 08-31-2020 COVID-19, mRNA, LNP- S, PF, 100 mcg/ 0.5 mL dose; Translations: [Moderna COVID-19 Vaccine] CHALO ZIMMERMAN NURSE PRACTITIONER-FREIGHT RECEIVER [facility] 05-05-2020 influenza virus vacc ine, unspecified formulation Tevin Maloney Jr., NURSE PRACTITIONER.FREIGHT RECEIVER Work Phone: [facility] 04-23-2019 influenza virus vacc ine, unspecified formulation CHALO ZIMMERMAN NURSE PRACTITIONER-FREIGHT RECEIVER [facility] 09-21-2018 pneumococcal conjuga te vaccine, 13 valent CHALO ZIMMERMAN NURSE PRACTITIONER-FREIGHT RECEIVER [facility] 09-21-2018 tetanus and diphther ia toxoids, adsorbed, preservative free, for adult use (5 Lf of tetanus toxoid and 2 Lf of diphtheria toxoid) CHALO ZIMMERMAN NURSE PRACTITIONER-FREIGHT RECEIVER [facility] 06-17-2016 pneumococcal polysaccharide vaccine, 23 valent CHALO ZIMMERMAN NURSE PRACTITIONER-FREIGHT RECEIVER [facility] 03-05-2016 tetanus toxoid, redu kostas diphtheria toxoid, and acellular pertussis vaccine, adsorbed CHALO ZIMMERMAN NURSE PRACTITIONER-FREIGHT RECEIVER [facility] 03-14-2014 zoster vaccine, live CHALO ENCISO NURSE PRACTITIONER-FREIGHT RECEIVER [facility] 06-15-2008 tetanus toxoid, redu kostas diphtheria toxoid, and acellular pertussis vaccine, adsorbed CHALO ZIMMERMAN NURSE PRACTITIONER-FREIGHT RECEIVER [facility] 05-06-2006 pneumococcal polysaccharide vaccine, 23 valent CHALO ZIMMERMAN NURSE PRACTITIONER-FREIGHT RECEIVER [facility] Payers Date Payer Category Payer Unknown MMO MMO SUPERMED PLUS [id number] 2019-Present [phone] [address] [place] [address] O [id number] 2019 Unknown MMO MMO SUPERMED PPO [id number] 2019-Present [phone] [address] [place] [address] PPO [id number] 2019 Unknown [id number] 1960 Unknown [id number] 1960 Unknown [id number] 1960 Unknown [id number] 1960 Unknown [id number] Social History Date Type Detail Facility Start: 02-10-2019 Ex-smoker (finding) [facility] Sex Assigned At Female [facility] Tobacco smoking status MNIS Tobacco smoking consumption unknown [facility] Start: 1960 Sex Assigned At Not on file [facility] Start: 06-10-2023 Tobacco smoking status NHIS Never smoked tobacco [facility] Start: 06-10-2023 Tobacco use and exposure Smokeless tobacco non-user [facility] Start: 06-10-2023 Alcohol intake Current drinke r of alcohol (finding) [facility] Start: 06-10-2023 History of Social function [facility] Start: 06-10-2023 Tobacco use panel [facility] Start: 06-10-2023 Alcohol Comment once or twice a marleny h [facility] Medical Equipment Procedure Code Equipment Code Equipment Origin al Text Equipment Identifier Dates See Instructions , BD Mini NDL pen [id number] , use and discard 1 pen needle daily. #1 E refill x 5 dx. 11.9, # 1 EA, 0 Refill(s), Pharmacy: [facility] Start: 05-03-2019 See Instructions , BD Mini NDL pen [id number] , use and discard 1 pen needle daily. #1 E refill x 5 dx. 11.9, # 1 EA, 0 Refill(s), Pharmacy: [facility] Start: 05-03-2019 See Instructions , BD Mini NDL pen [id number] , use and discard 1 pen needle daily. #1 E refill x 5 dx. 11.9, # 1 EA, 0 Refill(s), Pharmacy: [facility] Start: 05-03-2019 See Instructions , BD Mini NDL pen [id number] , use and discard 1 pen needle daily. #1 E refill x 5 dx. 11.9, # 1 EA, 0 Refill(s), Pharmacy: [facility] Start: 05-03-2019 See Instructions , BD Mini NDL pen [id number] , use and discard 1 pen needle daily. #1 E refill x 5 dx. 11.9, # 1 EA, 0 Refill(s), Pharmacy: [facility] Start: 05-03-2019 Progress note 06-10-2023 Note Date & Type Note Facility 06-10-2023 Note HNO ID: [id number] Author: Tevin Maloney Jr., PAZ.FREIGHT RECEIVER Service: ? Author Type: Nurse Practitioner Type: Progress Notes Filed: 06/10/2023 10:37 AM Note Text: Ameena Rocha is a 62 year old female who presents with Knee Pain (Vin knee pain /Started 3-4 days ago /Hx of knee replacement (left) /) and Rash (Right leg /Started about a week ago /Patient states she recently changed soap //Red and swollen and painful //) Rash Associated symptoms include joint pain. History reviewed. No pertinent past medical history. There is no problem list on file for this patient. Current Outpatient Medications Medication Sig Dispense Refill atorvastatin (LIPITOR) 10 mg tablet TAKE 1 (ONE) TABLET NIGHTLY FARXIGA 10 mg tablet Take 10 mg by mouth every morning. levothyroxine (SYNTHROID) 112 mcg tablet Take 112 mcg by mouth every morning. OZEMPIC 0.25 mg or 0.5 mg (2 mg/3 mL) pen WINTERAGLAR LINUS U-100 INSULIN 100 unit/mL (3 mL) INJECT 14 UNITS SUBCUTANEOUSLY DAILY IN AM--STARTING 07/01/21 lisinopril (ZESTRIL) 5 mg tablet Take 1 tablet by mouth every afternoon. meloxicam (MOBIC) 7.5 mg tablet See Instructions, # 30 tab(s), TAKE 1 TABLET BY MOUTH EVERY DAY, [facility]/pharmacy #[id number] metFORMIN (GLUCOPHAGE) 500 mg tablet Take 2 tablets by mouth every 12 hours. metoprolol succinate ER (TOPROL XL) 25 mg 24 hr tablet Take 1 tablet by mouth every afternoon. sertraline (ZOLOFT) 100 mg tablet Take 1 tablet by mouth every afternoon. SAPNA ASPIRIN ORAL Take 81 mg by mouth once daily. MULTIVITAMIN ORAL Take by mouth once daily. Flaxseed Oil oil Take 1,000 mg by mouth once daily. No current facility-administered medications for this visit. Social History Tobacco Use Smoking status: Never Smokeless tobacco: Never Vaping Use Vaping Use: Never used Substance Use Topics Alcohol use: Yes Comment: once or twice a month Drug use: Never Alcohol Use: Yes (once or twice a month) Tobacco Use: Never History reviewed. No pertinent family history. Review of Systems Constitutional: Negative. Respiratory: Negative. Cardiovascular: Negative. Gastrointestinal: Negative. Musculoskeletal: Positive for joint pain. Skin: Positive for rash. All other systems reviewed and are negative. BP 117/75 Pulse 67 Temp (Src) 98.9 (Temporal) Resp 18 SpO2 98% Physical Exam VITALS: Vital signs are within normal limits. CONSTITUTIONAL: patient is alert and orientatde by 3, no acute distress HEAD: Head is atraumatic normocephalic. THROAT: Throat is erythematous. No tonsilar enlargement/exudate noted. NECK: Normal phonation. No aterior cervical lyphadenopathy LUNGS: No labored breathing. Lungs clear to auscultation. HEART: Regular rate and rhythm. No murmurs, rubs, or gallops. ABDOMEN: Soft nontender nondistended. MUSCULOSKELETAL: Moves all extremities without difficulty. No edema noted lower extremity muscle strength of knee flexion/extension and foot plantar/dorsiflexion are all rated +5/+5. No loss of lower extremity sensation to touch bilaterally. Patellar grinding cause pain in the right knee. No pain noted in the left knee. SKIN: Warm and dry. On the bilateral anterior calf. There are rough textured macular rash, on the right side there is erythematous skin surrounding the area. No warmth or tenderness noted. NEUROLOGY: Straight leg raiser test was negative bilaterally with no radicular pain noted. PSYCHIATRY: Cooperative. Normal mood and affect. ASSESSMENT/PLAN: 1. Skin rash - ICD9: 782.1, ICD10: R21 (primary diagnosis) - DEXAMETHASONE 4 MG TABLET - CEPHALEXIN 500 MG TABLET 2. Acute pain of both knees - ICD9: 338.19, 719.46, ICD10: M25.561, M25.562 - DEXAMETHASONE SODIUM PHOSPHATE 10 MG/ML INJECTION FOR ORAL USE - DEXAMETHASONE 4 MG TABLET Patient presented today complaining of bilateral knee pain patient had a left knee replacement previously. On examination there is no edema noted patella grinding test was positive on the right negative on the left. Patient also had rashes on the anterior calf area bilaterally however the right side had erythematous skin surrounding the area that was not tender or warm to touch. It is my opinion patient is has a psoriasis outbreak of the knee however I cannot fully rule out an infection on the right anterior calf and patient is very concerned of this. I ordered dexamethasone to help with the inflammation and told patient to take the cephalexin if her symptoms do not start to radiate mass on the right side Tevin Maloney Jr, APRN.GIANNI [facility] Instructions 06-10-2023 Patient Instructions Note Date & Type Note Facility 06-10-2023 Instructions Tevin Maloney Jr., APRN.GIANNI - 06/10/2023 9:59 AM EST Start the oral Decadron tomorrow. Take the prescribed antibiotic if symptoms do not start to resolve with the steroid. Return or follow-up with PCP if symptoms continue. documented in this encounter [facility] History of Present illness Narrative 06-10-2023 Tevin Maloney Jr., APRN.CNP - 06/10/2023 9:24 AM EST Note Date & Type Note Facility 06-10-2023 History of Presen t illness Narrative Ameena Rocha is a 62 year old female who presents with Knee Pain (Vin knee pain /Started 3-4 days ago /Hx of knee replacement (left) /) and Rash (Right leg /Started about a week ago /Patient states she recently changed soap //Red and swollen and painful //) Rash Associated symptoms include joint pain. History reviewed. No pertinent past medical history. There is no problem list on file for this patient. Current Outpatient Medications Medication Sig Dispense Refill atorvastatin (LIPITOR) 10 mg tablet TAKE 1 (ONE) TABLET NIGHTLY FARXIGA 10 mg tablet Take 10 mg by mouth every morning. levothyroxine (SYNTHROID) 112 mcg tablet Take 112 mcg by mouth every morning. OZEMPIC 0.25 mg or 0.5 mg (2 mg/3 mL) pen BASAGLAR KWIKPEN U-100 INSULIN 100 unit/mL (3 mL) INJECT 14 UNITS SUBCUTANEOUSLY DAILY IN AM--STARTING 07/01/21 lisinopril (ZESTRIL) 5 mg tablet Take 1 tablet by mouth every afternoon. meloxicam (MOBIC) 7.5 mg tablet See Instructions, # 30 tab(s), TAKE 1 TABLET BY MOUTH EVERY DAY, [facility]/pharmacy #[id number] metFORMIN (GLUCOPHAGE) 500 mg tablet Take 2 tablets by mouth every 12 hours. metoprolol succinate ER (TOPROL XL) 25 mg 24 hr tablet Take 1 tablet by mouth every afternoon. sertraline (ZOLOFT) 100 mg tablet Take 1 tablet by mouth every afternoon. SAPNA ASPIRIN ORAL Take 81 mg by mouth once daily. MULTIVITAMIN ORAL Take by mouth once daily. Flaxseed Oil oil Take 1,000 mg by mouth once daily. No current facility-administered medications for this visit. Social History Tobacco Use Smoking status: Never Smokeless tobacco: Never Vaping Use Vaping Use: Never used Substance Use Topics Alcohol use: Yes Comment: once or twice a month Drug use: Never Alcohol Use: Yes (once or twice a month) Tobacco Use: Never History reviewed. No pertinent family history. Review of Systems Constitutional: Negative. Respiratory: Negative. Cardiovascular: Negative. Gastrointestinal: Negative. Musculoskeletal: Positive for joint pain. Skin: Positive for rash. All other systems reviewed and are negative. BP 117/75 Pulse 67 Temp (Src) 98.9 (Temporal) Resp 18 SpO2 98% Physical Exam VITALS: Vital signs are within normal limits. CONSTITUTIONAL: patient is alert and orientatde by 3, no acute distress HEAD: Head is atraumatic normocephalic. THROAT: Throat is erythematous. No tonsilar enlargement/exudate noted. NECK: Normal phonation. No aterior cervical lyphadenopathy LUNGS: No labored breathing. Lungs clear to auscultation. HEART: Regular rate and rhythm. No murmurs, rubs, or gallops. ABDOMEN: Soft nontender nondistended. MUSCULOSKELETAL: Moves all extremities without difficulty. No edema noted lower extremity muscle strength of knee flexion/extension and foot plantar/dorsiflexion are all rated +5/+5. No loss of lower extremity sensation to touch bilaterally. Patellar grinding cause pain in the right knee. No pain noted in the left knee. SKIN: Warm and dry. On the bilateral anterior calf. There are rough textured macular rash, on the right side there is erythematous skin surrounding the area. No warmth or tenderness noted. NEUROLOGY: Straight leg raiser test was negative bilaterally with no radicular pain noted. PSYCHIATRY: Cooperative. Normal mood and affect. ASSESSMENT/PLAN: 1. Skin rash - ICD9: 782.1, ICD10: R21 (primary diagnosis) - DEXAMETHASONE 4 MG TABLET - CEPHALEXIN 500 MG TABLET 2. Acute pain of both knees - ICD9: 338.19, 719.46, ICD10: M25.561, M25.562 - DEXAMETHASONE SODIUM PHOSPHATE 10 MG/ML INJECTION FOR ORAL USE - DEXAMETHASONE 4 MG TABLET Patient presented today complaining of bilateral knee pain patient had a left knee replacement previously. On examination there is no edema noted patella grinding test was positive on the right negative on the left. Patient also had rashes on the anterior calf area bilaterally however the right side had erythematous skin surrounding the area that was not tender or warm to touch. It is my opinion patient is has a psoriasis outbreak of the knee however I cannot fully rule out an infection on the right anterior calf and patient is very concerned of this. I ordered dexamethasone to help with the inflammation and told patient to take the cephalexin if her symptoms do not start to radiate mass on the right side Tevin Maloney Jr, NURSE PRACTITIONER.FREIGHT RECEIVER documented in this encounter [facility] History of Present illness Narrative 11-15-2020 Carley Desai MD - 11/15/2020 5:55 PM EDT Note Date & Type Note Facility 11-15-2020 History of Present illness Narrative DATE OF SERVICE: 11/14/2020 HISTORY OF PRESENT ILLNESS: A 50-year-old female with chief complaint of sinus pressure, cough, occasional chest heaviness. She says that she has been having these symptoms for nearly 2 weeks with coughing and nasal drainage that has now turned green. She said that yesterday, she started having pain and pressure in her left cheek, and it is radiating now to her tooth. She has been taking ivyx-zpd-nwupzhe cough medicine. She denies having any shortness of breath, fever, chills, body aches. PAST MEDICAL HISTORY: She has history of diabetes, pneumonia, stroke, hypothyroidism, depression. MEDICATIONS: 1. Victoza. 2. Metformin. 3. Farxiga. 4. Lisinopril. 5. Synthroid. 6. Sertraline. 6. Atorvastatin. 7. Metoprolol. ALLERGIES CODEINE. SOCIAL HISTORY: Nonsmoker, drinks alcohol occasionally. FAMILY HISTORY: High blood pressure and cancer. PHYSICAL EXAMINATION: Vital signs are within normal limits. She is in no acute distress. Tympanic membranes intact. She has left maxillary sinus tenderness to percussion. Mild nasal turbinate hypertrophy. Oral mucosa is moist. Normal posterior pharynx. No cervical lymphadenopathy. Heart: Regular rate and rhythm. No murmurs, rubs or gallops. Lungs: Clear to auscultation bilaterally. ASSESSMENT: Sinusitis. PLAN: Augmentin 875 mg twice daily for 10 days, Tylenol or ibuprofen for pain. Follow up as needed. Carley Desai MD /[id number] [facility] File#: [id number] END OF DOCUMENT / CHANGE LOG FOLLOWS Last Edited By [employer]. Signed By Carley Desai MD #Carley Armstrong MD #REESE on 11/25/2020 13:15 ET on 11/25/2020 13:15 ET Revision Number - 2 ^^^ Verified/Reviewed by 11/25/20 1315 REESE [facility] PATIENT NAME: AMEENA ROCHA [address] [place] MEDICAL REC #: [id number] [place] [address] [facility] PHYSICIAN documented in this encounter [facility] Evaluation + Plan note Note Date & Type Note Facility Evaluation + Plan note No data available for this section [facility] Evaluation note Note Date & Type Note Facility documented in this encounter [facility] Discharge instructions Note Date & Type Note Facility Hospital Discharge instructions No data available for this section [facility] Progress note Note Date & Type Note Facility Progress note No data available for this section [facility] Summary Purpose Family History No Family History Records FoundNo Family History Records Found No data available for this section No Family History Records Found Advance Directives No Advanced Directives Records FoundNo Advanced Directives Records FoundNo Advanced Directives Records Found Medications Administered Section Inactive Administered Medications - up to 3 most recent administrations Medication Order MAR Action Action Date Dose Rate Site dexAMETHasone sodium phosphate 10 mg for oral administration (DECADRON) 10 mg, ORAL, ONCE, 1 dose, On Thu06/10/23 at 1000, For Oral Use Only - May be mixed with food or beverage for administration. Given 06/10/2023 10:03 AM EST 10 mg Oral Additional Source Comments INFORMATION SOURCE (unrecogn ized section and content) DATE CREATED AUTHOR AUTHOR'S ORGANIZ ATION 06/12/2023 [facility] DATE CREATED AUTHOR AUTHOR'S ORGANIZ ATION 07/15/2023 [facility] ([place]) Source Comments (unrecognize d section and content) In the event this informatio n is protected by the Federal Confidentiality of Alcohol and Drug Abuse Patient Records regulations: The Federal rules restrict any use of the information to criminally investigate or prosecute any alcohol or drug abuse patient.[facility] the event this information is protected by the Federal Confidentiality of Alcohol and Drug Abuse Patient Records regulations: The Federal rules restrict any use of the information to criminally investigate or prosecute any alcohol or drug abuse patient.[facility] Care Teams (unrecognized sec tion and content) Nursery Supervisor Relationship Specialty Start Date End Date Lawanda Marilyn Wm WANG PCP - General 09/27/07 Care Team (unrecognized sect ion and content) Care Team Personnel Name: Gatito Ramirez PT Position: P3 Scheduling - Nursery Supervisor Advanced Member Role: Other Name: MAYNOR CINTRON MD Member Role: Primary Care Physician Address: Address: [address] [place] [address]- Care Team Related Persons Name: RHYS ROCHA Address: Home [address] [place], [place] [id number] Care Team Personnel Name: Gatito Ramirez Clerk Beatriz PT Position: P3 Scheduling - Nursery Supervisor Advanced Member Role: Other Name: MAYNOR CINTRON MD Member Role: Primary Care Physician Address: Address: [address] [facility] [address] [place] [address]- Care Team Related Persons Name: RHYS ROCHA Address: Home [address] [place], [place] [id number] Care Team Personnel Name: Gatito Ramirez Clerk Beatriz PT Position: P3 Scheduling - Nursery Supervisor Advanced Member Role: Other Name: MAYNOR CINTRON MD Member Role: Primary Care Physician Address: Address: [facility] [address] [facility] [address] [place] [address]- Care Team Related Persons Name: RHYS ROCHA Address: Home [facility] [place] [id number] Reason for Visit (unrecogniz ed section and content) FOR RECORDS PERTAINING TO PATIENTS WHO ARE OR HAVE BEEN ENROLLED IN A CHEMICAL DEPENDENCY/SUBSTANCEABUSE PROGRAM, SOME INFORMATION MAY BE OMITTED. This clinical summary was aggregated from multiple sources. Caution should be exercised in using it in the provision of clinical care. This summary normalizes information from multiple sources, and as a consequence, information in this document may materially change the coding, format and clinical context of patient data. In addition, data may be omitted in some cases. CLINICAL DECISIONS SHOULD BE BASED ON THE PRIMARY CLINICAL RECORDS. [facility]. provides no warranty or guarantee of the accuracy or completeness of information in this document.
== END | disposition home or self-care (01) ==
LOC: OPBI 09:24
PROVIDERS: PCP Family Medicine; Referring Provider Family Medicine; Visit Provider Family Medicine
DX: Z12.31 Encounter for screening mammogram for malignant neoplasm of breast (principal); Z80.3 Family history of malignant neoplasm of breast
CPT/HCPCS: 77063; 77067

== ENCOUNTER → 2024-02-29 | Outpatient (CLI) | payer OTHER, SELFPAY ==
--- NOTE | 2024-02-29 08:52 | VDLE_ITS ---
Reason For Study: RLE Pain RIGHT LEFT CFV is compressible, spontaneous, phasic, CFV is compressible, spontaneous, phasic, competent and demonstrates normal competent, and demonstrates normal augmentation. augmentation. FV is compressible, spontaneous, phasic, competent and demonstrates normal augmentation. POP V is compressible, spontaneous, phasic, competent and demonstrates normal augmentation. T/P Trunk is compressible. PTV is compressible. RT PerV is compressible. SFJ is INCOMPETENT and measures 0.74 cm. GSV proximal thigh measures 0.67 x 0.69 cm. GSV at knee measures 0.37 x 0.37 cm. GSV INCOMPETENT throughout for greater than 0.5 seconds. SSV proximal calf is competent and measures 0.29 x 0.37 cm. Procedure This is a venous duplex using B-mode, color flow and spectral Doppler. Exam performed in department. The exam was diagnostic. VL/Venous Duplex US, Unilateral Interpretation Summary Deep veins of the right lower extremity are patent and compressible segmentally . There is no evidence of right lower extremity deep vein thrombosis. The right great sapheno us vein appears patent and compressible segmentally. Positive for reflux in the right saphenofemoral junction, great saphenous vein throughout Ordering Physician: Makayla Robles Referring Physician: Vamsi Mon Performed By: Osmel Mclain RVT
--- NOTE | 2024-02-29 08:52 | ART_ITS ---
Reason For Study: Decreased Pedal Pulses Procedure A bilateral lower extremity continuous wave Doppler with analog waveform analysis,segmental pressures,and ankle brachial indexes with exercise. Left Segmental Pressures Left brachial= 136mmHg. Left posterior tibial artery = 140mmHg. Left dorsalis pedis artery = 144mmHg. Left digit = 108 mmHg. The left posterior tibial artery waveforms are triphasic. The left dorsalis pedis waveforms are triphasic. Right Segmental Pressures Right brachial= 137mmHg. Right posterior tibial artery = 155mmHg. Right dorsalis pedis artery = 138mmHg. Right digit = 100 mmHg. The right posterior tibial artery waveforms are triphasic. The right dorsalis pedis waveforms are triphasic. Indices The right ankle brachial index by the posterior tibial artery is 1.13. The right ankle brachial index by the dorsalis pedis is 1.01. The right digital-brachial index is 0.73. The right post exercise ankle brachial index is 1.15. The left ankle brachial index by the posterior tibial artery is 1.02. The left ankle brachial index by the dorsalis pedis is 1.05. The left digital-brachial index is 0.79. The left post exercise ankle brachial index is 1.07. VL/Lower Ext Art Exam w/ Exercise Interpretation Summary Right ROSANNA 1.13, normal. Doppler/PVR waveforms of the right leg normal at rest. TBI diminished, pedal/digit disease vs spasm Right lower extremity exhibits normal response to exercise. Left ROSANNA 1.05, normal. TBI and Doppler/PVR waveforms of the left leg normal at rest. Left lower extremity exhibits normal response to exercise. Ordering Physician: Makayla Robles Referring Physician: Vamsi Mon Performed By: Osmel Mclain RVT
== END | disposition home or self-care (01) ==
LOC: CVS 08:42
PROVIDERS: PCP Family Medicine; Referring Provider Physician Assistant; Visit Provider Physician Assistant
DX: R09.89 Other specified symptoms and signs involving the circulatory and respiratory systems (principal); I83.891 Varicose veins of right lower extremity with other complications
CPT/HCPCS: 93924; 93971

== ENCOUNTER → 2024-08-26 | Outpatient (CLI) | payer OTHER, SELFPAY ==
--- NOTE | 2024-08-26 10:29 | BI_ITS ---
PROCEDURE: SCRN MAMM (CAD)W/BIRDIE BILAT REASON FOR EXAM: F, Age 64 y/o, presents for annual screening mammogram. Family history of breast cancer in her sister at age 66. TECHNIQUE: Bilateral screening digital breast tomosynthesis with 2D and 3D images. Computer aided detection. COMPARISON: 08/11/2023, 08/04/2022 FINDINGS: There are scattered areas of fibroglandular density. No suspicious masses, areas of developing architectural distortion, or suspicious calcifications. BI/SCRN MAMM (CAD)W/BIRDIE BILAT IMPRESSION: There is no mammographic evidence of malignancy in either breast. BI-RADS 1: NEGATIVE. RECOMMEND ANNUAL MAMMOGRAPHIC SCREENING. Follow-up code: Routine Follow-up. The patient will be notified of the results by letter. Reading Location: [facility]
== END | disposition home or self-care (01) ==
LOC: OPBI 10:27
PROVIDERS: PCP Family Medicine; Referring Provider Family Medicine; Visit Provider Family Medicine
DX: Z12.31 Encounter for screening mammogram for malignant neoplasm of breast (principal); Z80.3 Family history of malignant neoplasm of breast
CPT/HCPCS: 77063; 77067

== ENCOUNTER → 2024-10-21 | Outpatient (CLI) | payer OTHER, SELFPAY ==
[2024-10-21 11:26] LABS: Bacteria 0 SEEN /hpf (None Seen); Mucous, Urine 0 SEEN /hpf (<or=2+); Red Blood Cells-Urine 0 SEEN /hpf (0-5); Squamous Epithelial Cells - UA 0 SEEN /hpf (5-10); White Blood Cells 0 SEEN /hpf (0-5)
[2024-10-21 12:52] LABS: Color, Urine Straw (Yellow); Glucose, Dipstick Normal (Normal); Ketone-Dipstick Negative (Negative); Leukocyte Esterase-Dipstick Negative /ul (Negative); Nitrite-Dipstick Negative (Negative); Occult Blood-Urine 10 /ul (Negative); Protein-Dipstick Negative (Negative); Specific Gravity, Urine 1.005 (1.002-1.030); Urine Bilirubin Dipstick Negative (Negative); Urine Clarity Clear (Clear); Urine Urobilinogen Normal (Normal)
== END | disposition home or self-care (01) ==
PROVIDERS: PCP Family Medicine
DX: B37.9 Candidiasis, unspecified (principal)
CPT/HCPCS: 81001; 87086